=== PATIENT | male | born 1960 | race African-American/Black ===

== ENCOUNTER 2021-06-03 09:26 | Inpatient (IN) | payer OTHER ==
[~2021-06-03] VITALS: Ht 175.3 cm; Wt 78.5 kg
[~2021-06-03 09:26] MED LIST: ATEN-175; METF-416
[2021-06-03 09:45] LABS: BASOPHILS % 0.7 % (0.0-2.0); EOSINOPHILS % 1.7 % (0.0-5.0); HEMATOCRIT. 37.2 % (42.0-52.0); HEMOGLOBIN. 11.8 g/dL (14.0-18.0); LYMPHOCYTES % 14.5 % (20.0-50.0); MEAN CORPUSCULAR HEMOGLOBIN 27.6 pg (28.0-32.0); MEAN CORPUSCULAR VOLUME 86.5 fL (80.0-94.0); MEAN PLATELET VOLUME 9.8 fl (7.4-10.4); MONOCYTES % 6.2 % (2.0-8.0); NEUTROPHILS % 76.9 % (40.0-76.0); PLATELET 344 x1000/uL (130-400); RED CELL DISTRIBUTION WIDTH 15.6 % (11.6-14.6)
[2021-06-03] MEDS ORDERED: ENALAPRIL 1.25MG/ML VIAL 1ML IV ONE (09:45)
[2021-06-03] MEDS ORDERED: ENALAPRIL 2.5MG/2ML VIAL 2ML IV ONE (09:45)
[2021-06-03] MEDS ORDERED: FUROSEMIDE 40MG/4ML VIAL IVP ONE (09:45)
[2021-06-03 09:53] LABS: CHLORIDE 110 mEq/L (98-107)
[2021-06-03] MEDS ORDERED: LEVOFLOXACIN 750MG PREMIX 150 ML IV ONE (10:00)
[2021-06-03 11:23] LABS: BG BASE EXCESS -0.9 mmol/L (-2.0-2.0); BG CARBOXYHEMOGLOBIN 1.6 % (0.5-1.5); BG DEOXYHEMOGLOBIN 0.1 % (0.0-5.0); BG FRACTION INSPIRED OXYGEN 100; BG HCO3 ACT 23.2 mmol/L (22.0-26.0); BG METHEMOGLOBIN 0.1 % (0.0-1.5); BG OXYGEN SATURATION 99.9 % (92.0-98.5); BG OXYHEMOGLOBIN 98.2 % (94.0-97.0); BG PCO2 36.6 mmHg (35.0-45.0); BG PO2 340.4 mmHg (75.0-100.0); BG SAMPLE SITE RIGHT RADIAL; BG TOTAL HEMOGLOBIN 11.7 g/dL (12.0-18.0); BG VENT MODE MASK - BIPAP
[2021-06-03] MEDS ORDERED: ONDANSETRON HCL 4MG/2ML INJ IV PRN (12:45)
[2021-06-03] MEDS ORDERED: IPRATROPIUM/ALBUTEROL 0.5-3(2.5)MG/3ML NEB HHN PRN (12:45)
[2021-06-03] MEDS ORDERED: ACETAMINOPHEN 325MG TABLET PO PRN (12:45)
[2021-06-03] MEDS ORDERED: CLONIDINE 0.1MG TABLET PO PRN (12:45)
[2021-06-03] MEDS ORDERED: DIPHENHYDRAMINE 50MG/ML VIAL IV PRN (12:45)
[2021-06-03 14:00] VITALS: BP_SYST 133; BP_SYST 147; BP_DIAS 86; BP_DIAS 94
[2021-06-03] MEDS: ENOXAPARIN 40MG/0.4ML SYR SUBCUT SCH (14:42)
[2021-06-03] MEDS: AMLODIPINE 5MG TABLET PO SCH (14:42)
[2021-06-03 16:00] VITALS: BP 137/87
[2021-06-03] MEDS ORDERED: AMLO5TAB88 PO (16:45)
[2021-06-03] MEDS ORDERED: SULF-293 PO (16:47)
[2021-06-03] MEDS ORDERED: OMEP40CA20 MT (16:51)
[2021-06-03] MEDS ORDERED: ASPI-1079 PO (16:52)
[2021-06-03] MEDS ORDERED: *PATIENT'S OWN MEDICATION STORAGE XX SCH (17:15)
[2021-06-03 18:00] VITALS: BP 130/86
[2021-06-03] MEDS ORDERED: DEXTROSE 50% WATER 50ML SYRINGE IV PRN (18:45)
[2021-06-03 20:00] VITALS: BP 118/71
[2021-06-03] MEDS: IPRATROPIUM/ALBUTEROL 0.5-3(2.5)MG/3ML NEB HHN SCH (20:13)
[2021-06-03] MEDS: BLOOD SUGAR DIAGNOSTIC STRIP TEST SCH (20:48)
[2021-06-03] MEDS ORDERED: NALOXONE HCL 0.4MG/ML VIAL IV PRN (21:30)
[2021-06-03] MEDS: FUROSEMIDE 100MG/10ML VIAL IV SCH (21:38)
[2021-06-03] MEDS: INSULIN LISPRO 100 UNITS/ML SUBCUT SCH (21:42)
[2021-06-03] MEDS: HYDROCODONE/ACETAMINOPHEN 5/325MG TABLET PO PRN (21:43)
[2021-06-03] MEDS: ZOLPIDEM TARTRATE 5MG TABLET PO PRN (21:43)
[2021-06-03 22:00] VITALS: BP 127/72
[2021-06-04] VITALS (12 sets, daily range): BP systolic 124–146; BP diastolic 58–93
[2021-06-04] MEDS: IPRATROPIUM/ALBUTEROL 0.5-3(2.5)MG/3ML NEB HHN SCH ×4 (01:22→20:32)
[2021-06-04 06:00] LABS: CHLORIDE 106 mEq/L (98-107)
[2021-06-04 06:16] LABS: BASOPHILS % 0.5 % (0.0-2.0); EOSINOPHILS % 0.3 % (0.0-5.0); HEMATOCRIT. 36.2 % (42.0-52.0); HEMOGLOBIN. 11.7 g/dL (14.0-18.0); LYMPHOCYTES % 9.8 % (20.0-50.0); MEAN CORPUSCULAR VOLUME 86.8 fL (80.0-94.0); MEAN PLATELET VOLUME 10.3 fl (7.4-10.4); NEUTROPHILS % 84.4 % (40.0-76.0); PLATELET 271 x1000/uL (130-400); RED BLOOD CELL COUNT 4.17 mill/uL (4.7-6.1); RED CELL DISTRIBUTION WIDTH 15.5 % (11.6-14.6)
[2021-06-04] MEDS: BLOOD SUGAR DIAGNOSTIC STRIP TEST SCH ×4 (07:30→21:00)
[2021-06-04] MEDS: INSULIN LISPRO 100 UNITS/ML SUBCUT SCH ×4 (08:00→20:52)
[2021-06-04] MEDS ORDERED: FUROSEMIDE 40MG/4ML VIAL IV SCH (09:00)
[2021-06-04] MEDS: ENOXAPARIN 40MG/0.4ML SYR SUBCUT SCH (09:16)
[2021-06-04] MEDS: AMLODIPINE 5MG TABLET PO SCH (09:16)
[2021-06-04] MEDS: FUROSEMIDE 100MG/10ML VIAL IV SCH ×2 (09:25→20:52)
[2021-06-04] MEDS: HYDROCODONE/ACETAMINOPHEN 5/325MG TABLET PO PRN ×2 (09:35→20:53)
[2021-06-04] MEDS ORDERED: INFLUENZA VACCINE 05/PF 0.5 ML SYRINGE IM ONE (10:45)
[2021-06-04] MEDS ORDERED: PNEUMOCOCCAL 23-VAL P-SAC VAC 0.5 ML IM ONE (10:45)
[2021-06-04 13:19] LABS: *AMPHETAMINES SCREEN URINE NEGATIVE (NEGATIVE); *BARBITURATES SCREEN URINE NEGATIVE (NEGATIVE); *BENZODIAZEPINES SCREEN URINE NEGATIVE (NEGATIVE); *COCAINE SCREEN URINE PRESUMTIVE POSITIVE (NEGATIVE)
[2021-06-04 13:20] LABS: CANNABINOID URINE SCREEN PRESUMTIVE POSITIVE (NEGATIVE); METHADONE URINE SCREEN NEGATIVE (NEGATIVE); OPIATES URINE SCREEN PRESUMTIVE POSITIVE (NEGATIVE); PHENCYCLIDINE URINE SCREEN NEGATIVE (NEGATIVE)
[2021-06-04] MEDS: ZOLPIDEM TARTRATE 5MG TABLET PO PRN (20:52)
[2021-06-05] VITALS (7 sets, daily range): BP systolic 118–155; BP diastolic 40–106
[2021-06-05] MEDS: IPRATROPIUM/ALBUTEROL 0.5-3(2.5)MG/3ML NEB HHN SCH ×2 (02:02→08:17)
[2021-06-05] MEDS: INSULIN LISPRO 100 UNITS/ML SUBCUT SCH (08:00)
[2021-06-05] MEDS: HYDROCODONE/ACETAMINOPHEN 5/325MG TABLET PO PRN (08:02)
[2021-06-05] MEDS: BLOOD SUGAR DIAGNOSTIC STRIP TEST SCH (08:04)
[2021-06-05] MEDS: ENOXAPARIN 40MG/0.4ML SYR SUBCUT SCH (08:13)
[2021-06-05] MEDS: AMLODIPINE 5MG TABLET PO SCH (08:13)
[2021-06-05] MEDS ORDERED: FUROSEMIDE 40MG TABLET PO SCH (09:00)
[2021-06-05] MEDS ORDERED: FURO40TA5 PO (11:41)
[2021-06-05] MEDS ORDERED: METF-416 PO (11:41)
[2021-06-05] MEDS ORDERED: AMLO5TAB88 PO (11:41)
== END 2021-06-05 12:09 | disposition home or self-care (01) | DRG 194 ==
LOC: ER 09:26 → 5EST 10:52 → EDBEDREQTM 10:58 → EDBEDREQ 10:58 → ENRESERV 11:51 → 5EST 06-04 03:40
PROVIDERS: ADMIT Internal Medicine; ATTEND Internal Medicine
PROC: 5A09357 Assistance with Respiratory Ventilation, Less than 24 Consecutive Hours, Continuous Positive Airway Pressure (ICD-10-PCS; principal; 2021-06-03)
PROC: 5A09357 Assistance with Respiratory Ventilation, Less than 24 Consecutive Hours, Continuous Positive Airway Pressure (ICD-10-PCS; 2021-06-04)
DX: I11.0 Hypertensive heart disease with heart failure (principal); J96.01 Acute respiratory failure with hypoxia; E43 Unspecified severe protein-calorie malnutrition; I50.33 Acute on chronic diastolic (congestive) heart failure; I31.3 Pericardial effusion (noninflammatory); I42.9 Cardiomyopathy, unspecified; F17.210 Nicotine dependence, cigarettes, uncomplicated; J44.9 Chronic obstructive pulmonary disease, unspecified; R74.01 Elevation of levels of liver transaminase levels; E87.8 Other disorders of electrolyte and fluid balance, not elsewhere classified; E11.65 Type 2 diabetes mellitus with hyperglycemia; I34.0 Nonrheumatic mitral (valve) insufficiency; Z20.822 Contact with and (suspected) exposure to COVID-19; Z82.3 Family history of stroke; Z79.82 Long term (current) use of aspirin; Z79.899 Other long term (current) drug therapy; Z79.84 Long term (current) use of oral hypoglycemic drugs; Z68.25 Body mass index [BMI] 25.0-25.9, adult; Z91.14 Patient's other noncompliance with medication regimen; Z71.6 Tobacco abuse counseling
CPT/HCPCS: 36415; 36600; 71045; 80053; 80305; 82375; 82805; 82962; 83036; 83735; 83880; 84443; 84484; 85025; 87426; 87804; 93005; 93306; 93970; 94660; 99291; J1650; J1815; J1940; J1956; J3490

== ENCOUNTER 2021-12-29 16:13 | Inpatient (IN) | payer MEDICAID, OTHER ==
[~2021-12-29] VITALS: Ht 180.3 cm; Wt 113.1 kg
[~2021-12-29 16:13] MED LIST changes: +APIX5TAB PO; -ATEN-175; +COR3 PO; +DIGO-28 PO; +FURO40TA5 PO; +LISI2.5T47 PO; +LORA-249 MT; +MELA3TAB40 MT; -METF-416; +METF-416 PO; +OMEP40CA20 MT
[2021-12-29] MEDS ORDERED: FUROSEMIDE 100MG/10ML VIAL IVP ONE (16:45)
[2021-12-29] MEDS ORDERED: HYDRALAZINE 20MG/ML VIAL IV ONE (16:45)
[2021-12-29] MEDS ORDERED: NITROGLYCERIN OINT 1GM/INCH UDPKT TD ONE (16:45)
[2021-12-29 18:49] LABS: CHLORIDE 106 mEq/L (98-107)
[2021-12-29 18:50] LABS: INR 1.1; PROTHROMBIN TIME 12.2 sec (9.6-11.0)
[2021-12-29 18:54] LABS: BASOPHILS % 0.3 % (0.0-2.0); EOSINOPHILS % 0.7 % (0.0-5.0); HEMATOCRIT. 35.1 % (42.0-52.0); HEMOGLOBIN. 10.9 g/dL (14.0-18.0); LYMPHOCYTES % 14.9 % (20.0-50.0); MEAN CORPUSCULAR HEMOGLOBIN 23.1 pg (28.0-32.0); MEAN CORPUSCULAR VOLUME 74.3 fL (80.0-94.0); MEAN PLATELET VOLUME 11.3 fl (7.4-10.4); MONOCYTES % 7.5 % (2.0-8.0); NEUTROPHILS % 76.6 % (40.0-76.0); PLATELET 119 x1000/uL (130-400); RED BLOOD CELL COUNT 4.72 mill/uL (4.7-6.1); RED CELL DISTRIBUTION WIDTH 22.3 % (11.6-14.6)
[2021-12-29 20:26] LABS: PLATELET ESTIMATE DECREASED
[2021-12-29] MEDS ORDERED: METOPROLOL SUCCINATE 50MG ER TABLET PO NR (21:30)
[2021-12-29] MEDS ORDERED: METOPROLOL TARTRATE 5MG/5ML VIAL IV NR (21:30)
[2021-12-29] MEDS ORDERED: METOPROLOL TARTRATE 5MG/5ML VIAL IV ONE (22:30)
[2021-12-29] MEDS ORDERED: IOHEXOL-300 100 ML BOTTLE ONE (22:45)
[2021-12-29] MEDS ORDERED: INSULIN REGULAR (HUMULIN R) 300UNITS/3ML VIAL SUBCUT ONE (22:45)
[2021-12-29] MEDS ORDERED: POTASSIUM CHLORIDE 20MEQ TABLET SR PO NR (23:00)
[2021-12-30 01:00] VITALS: BP 133/95
[2021-12-30] MEDS ORDERED: LORAZEPAM 0.5MG TABLET PO PRN (03:15)
[2021-12-30 04:00] VITALS: BP 130/90
[2021-12-30 08:00] VITALS: BP 138/107
[2021-12-30] MEDS ORDERED: DEXTROSE 50% WATER 50ML SYRINGE IV PRN (08:00)
[2021-12-30] MEDS ORDERED: INSULIN LISPRO 100 UNITS/ML SUBCUT NR (08:00)
[2021-12-30] MEDS ORDERED: POTASSIUM CHLORIDE 20MEQ TABLET SR PO NR (08:15)
[2021-12-30] MEDS: CARVEDILOL 6.25 MG TABLET PO SCH ×2 (08:34→21:33)
[2021-12-30] MEDS: METFORMIN HCL 500MG TABLET PO SCH ×2 (08:34→17:04)
[2021-12-30] MEDS: OMEPRAZOLE 20MG CAPSULE EXTENDED RELEASE PO SCH (08:35)
[2021-12-30] MEDS: APIXABAN 5 MG TABLET PO SCH ×2 (08:35→17:04)
[2021-12-30] MEDS: LISINOPRIL 2.5MG TABLET PO SCH (08:35)
[2021-12-30] MEDS ORDERED: FUROSEMIDE 40MG TABLET PO SCH (09:00)
[2021-12-30] MEDS ORDERED: CARVEDILOL 3.125 MG TABLET PO SCH (09:00)
[2021-12-30] MEDS ORDERED: METOLAZONE 2.5MG TABLET PO NR (09:30)
[2021-12-30] MEDS: INSULIN GLARGINE 100 UNITS/ML SUBCUT SCH ×2 (09:41→21:28)
[2021-12-30] MEDS ORDERED: INSULIN GLARGINE 100 UNITS/ML SUBCUT SCH (10:00)
[2021-12-30 12:00] VITALS: BP 130/76
[2021-12-30] MEDS: BLOOD SUGAR DIAGNOSTIC STRIP TEST SCH ×3 (12:31→21:27)
[2021-12-30] MEDS: INSULIN LISPRO 100 UNITS/ML SUBCUT SCH ×3 (12:42→21:00)
[2021-12-30 16:19] VITALS: BP 118/78
[2021-12-30] MEDS: DIGOXIN 250MCG TABLET PO SCH (17:04)
[2021-12-30] MEDS: FUROSEMIDE 100MG/10ML VIAL IVP SCH (17:04)
[2021-12-30 20:00] VITALS: BP 120/93
[2021-12-31] VITALS: BP 101/67
[2021-12-31 04:00] VITALS: BP 133/80
[2021-12-31] MEDS: METFORMIN HCL 500MG TABLET PO SCH ×2 (06:46→17:41)
[2021-12-31] MEDS: FUROSEMIDE 100MG/10ML VIAL IVP SCH ×2 (06:46→17:41)
[2021-12-31] MEDS: BLOOD SUGAR DIAGNOSTIC STRIP TEST SCH ×4 (06:47→21:35)
[2021-12-31] MEDS: INSULIN LISPRO 100 UNITS/ML SUBCUT SCH ×4 (07:40→20:39)
[2021-12-31 08:00] VITALS: BP 135/79
[2021-12-31] MEDS: OMEPRAZOLE 20MG CAPSULE EXTENDED RELEASE PO SCH (08:40)
[2021-12-31] MEDS: APIXABAN 5 MG TABLET PO SCH ×2 (08:41→17:41)
[2021-12-31] MEDS: CARVEDILOL 6.25 MG TABLET PO SCH ×2 (08:41→20:40)
[2021-12-31] MEDS: LISINOPRIL 2.5MG TABLET PO SCH (08:41)
[2021-12-31] MEDS: INSULIN GLARGINE 100 UNITS/ML SUBCUT SCH ×2 (10:00→21:38)
[2021-12-31 12:00] VITALS: BP 155/84
[2021-12-31 16:00] VITALS: BP 124/60
[2021-12-31] MEDS ORDERED: METOLAZONE 2.5MG TABLET PO NR (17:00)
[2021-12-31] MEDS: DIGOXIN 250MCG TABLET PO SCH (17:41)
[2021-12-31 17:57] LABS: CHLORIDE 105 mEq/L (98-107)
[2021-12-31 20:00] VITALS: BP 113/70
[2021-12-31] MEDS ORDERED: NALOXONE HCL 0.4MG/ML VIAL IV PRN (20:45)
[2021-12-31] MEDS ORDERED: HYDROCODONE/ACETAMINOPHEN 5/325MG TABLET PO PRN (20:45)
[2022-01-01] VITALS: BP 104/53
[2022-01-01 04:00] VITALS: BP 101/61
[2022-01-01] MEDS: INSULIN LISPRO 100 UNITS/ML SUBCUT SCH ×4 (06:19→21:00)
[2022-01-01] MEDS: BLOOD SUGAR DIAGNOSTIC STRIP TEST SCH ×4 (06:19→21:35)
[2022-01-01] MEDS: FUROSEMIDE 100MG/10ML VIAL IVP SCH ×2 (07:15→17:11)
[2022-01-01 08:00] VITALS: BP 101/50
[2022-01-01] MEDS ORDERED: POTASSIUM CHLORIDE 20MEQ TABLET SR PO NR ×2 (08:30→20:30)
[2022-01-01] MEDS: LISINOPRIL 2.5MG TABLET PO SCH (09:00)
[2022-01-01] MEDS: CARVEDILOL 6.25 MG TABLET PO SCH ×2 (09:00→21:00)
[2022-01-01] MEDS: INSULIN GLARGINE 100 UNITS/ML SUBCUT SCH ×2 (09:34→22:00)
[2022-01-01] MEDS ORDERED: LIDOCAINE HCL/PF 1% 10 MG/ML 5ML VIAL ONE (10:30)
[2022-01-01 12:00] VITALS: BP 108/77
[2022-01-01] MEDS: OMEPRAZOLE 20MG CAPSULE EXTENDED RELEASE PO SCH (12:02)
[2022-01-01] MEDS: METFORMIN HCL 500MG TABLET PO SCH ×2 (12:02→17:11)
[2022-01-01] MEDS: APIXABAN 5 MG TABLET PO SCH ×2 (12:06→17:10)
[2022-01-01] MEDS ORDERED: METOLAZONE 2.5MG TABLET PO NR (12:15)
[2022-01-01 16:00] VITALS: BP 113/76
[2022-01-01] MEDS: DIGOXIN 250MCG TABLET PO SCH (17:10)
[2022-01-01 20:00] VITALS: BP 111/75
[2022-01-01] MEDS ORDERED: POTASSIUM CHLORIDE INJ 40 MEQ in DEXT 5% WATER 250 ML IV ONE (20:30)
[2022-01-01] MEDS ORDERED: KCL 20MEQ/100ML X 2 FOR TOTAL KCL 40MEQ/200ML IV SCH (22:00)
[2022-01-01] MEDS ORDERED: BENZONATATE 100MG CAPSULE PO PRN (23:30)
[2022-01-02] VITALS: BP 117/84
[2022-01-02 04:00] VITALS: BP 123/82
[2022-01-02] MEDS: INSULIN LISPRO 100 UNITS/ML SUBCUT SCH ×4 (06:03→21:28)
[2022-01-02] MEDS: FUROSEMIDE 100MG/10ML VIAL IVP SCH ×2 (06:04→17:38)
[2022-01-02] MEDS: BLOOD SUGAR DIAGNOSTIC STRIP TEST SCH ×4 (06:05→21:15)
[2022-01-02 07:56] LABS: CHLORIDE 99 mEq/L (98-107)
[2022-01-02 08:00] VITALS: BP 128/77
[2022-01-02] MEDS: OMEPRAZOLE 20MG CAPSULE EXTENDED RELEASE PO SCH (08:30)
[2022-01-02] MEDS: LISINOPRIL 2.5MG TABLET PO SCH (08:30)
[2022-01-02] MEDS: APIXABAN 5 MG TABLET PO SCH ×2 (08:30→17:38)
[2022-01-02] MEDS: CARVEDILOL 6.25 MG TABLET PO SCH ×2 (08:30→21:20)
[2022-01-02] MEDS: METFORMIN HCL 500MG TABLET PO SCH ×2 (08:30→17:38)
[2022-01-02] MEDS: POTASSIUM CHLORIDE 20MEQ TABLET SR PO SCH ×3 (08:50→09:17)
[2022-01-02] MEDS: INSULIN GLARGINE 100 UNITS/ML SUBCUT SCH (09:10)
[2022-01-02 12:00] VITALS: BP 113/71
[2022-01-02] MEDS ORDERED: POTASSIUM CHLORIDE INJ 40 MEQ in DEXT 5% WATER 250 ML IV ONE (15:15)
[2022-01-02 16:00] VITALS: BP 128/77
[2022-01-02] MEDS: KCL 20MEQ/100ML X 2 FOR TOTAL KCL 40MEQ/200ML IV SCH ×2 (17:38→21:26)
[2022-01-02] MEDS: DIGOXIN 250MCG TABLET PO SCH (17:38)
[2022-01-02 20:00] VITALS: BP 124/72
== END 2022-01-02 22:45 | disposition left against medical advice (07) | DRG 194 ==
LOC: ER 16:13 → 8WST 20:14 → EDBEDREQ 20:36 → EDBEDREQTM 20:36 → ENRESERV 21:48
PROVIDERS: ADMIT Internal Medicine; ATTEND Internal Medicine
PROC: 02HV33Z Insertion of Infusion Device into Superior Vena Cava, Percutaneous Approach (ICD-10-PCS; principal; 2022-01-01)
PROC: B5181ZA Fluoroscopy of Superior Vena Cava using Low Osmolar Contrast, Guidance (ICD-10-PCS; 2022-01-01)
PROC: B548ZZA Ultrasonography of Superior Vena Cava, Guidance (ICD-10-PCS; 2022-01-01)
DX: I11.0 Hypertensive heart disease with heart failure (principal); E43 Unspecified severe protein-calorie malnutrition; I27.20 Pulmonary hypertension, unspecified; R18.8 Other ascites; E66.01 Morbid (severe) obesity due to excess calories; D64.9 Anemia, unspecified; E11.65 Type 2 diabetes mellitus with hyperglycemia; E87.6 Hypokalemia; I50.23 Acute on chronic systolic (congestive) heart failure; J44.9 Chronic obstructive pulmonary disease, unspecified; F14.90 Cocaine use, unspecified, uncomplicated; Z68.34 Body mass index [BMI] 34.0-34.9, adult; Z53.29 Procedure and treatment not carried out because of patient's decision for other reasons; N50.89 Other specified disorders of the male genital organs
CPT/HCPCS: 36415; 36573; 71045; 74177; 80048; 80053; 82962; 83036; 83605; 83880; 84145; 85025; 93005; 97162; 99291; C1725; J1815; J1940; J3480; J3490; Q9967

== ENCOUNTER 2022-01-18 15:16 | Inpatient (IN) | payer OTHER ==
[~2022-01-18] VITALS: Ht 170.2 cm; Wt 117.5 kg
[2022-01-18] MEDS ORDERED: ASPIRIN 81MG TABLET PO ONE (15:45)
[2022-01-18] MEDS ORDERED: FUROSEMIDE 40MG/4ML VIAL IV ONE (15:45)
[2022-01-18] MEDS ORDERED: CARVEDILOL 3.125 MG TABLET PO ONE (15:45)
[2022-01-18 18:57] LABS: BASOPHILS % 0.8 % (0.0-2.0); EOSINOPHILS % 0.7 % (0.0-5.0); HEMATOCRIT. 33.1 % (42.0-52.0); HEMOGLOBIN. 10.1 g/dL (14.0-18.0); LYMPHOCYTES % 20.7 % (20.0-50.0); MEAN CORPUSCULAR HEMOGLOBIN 23.2 pg (28.0-32.0); MEAN CORPUSCULAR VOLUME 76.1 fL (80.0-94.0); MEAN PLATELET VOLUME 10.2 fl (7.4-10.4); MONOCYTES % 9.3 % (2.0-8.0); NEUTROPHILS % 68.5 % (40.0-76.0); PLATELET 198 x1000/uL (130-400); RED BLOOD CELL COUNT 4.35 mill/uL (4.7-6.1); RED CELL DISTRIBUTION WIDTH 20.6 % (11.6-14.6)
[2022-01-18 19:03] LABS: CHLORIDE 99 mEq/L (98-107)
[2022-01-18] MEDS ORDERED: ASPIRIN 81MG TABLET PO NR (19:30)
[2022-01-18] MEDS ORDERED: CARVEDILOL 3.125 MG TABLET PO NR (19:30)
[2022-01-18] MEDS ORDERED: FUROSEMIDE 40MG/4ML VIAL IV NR (19:30)
[2022-01-19] MEDS ORDERED: CARVEDILOL 3.125 MG TABLET PO NR (00:15)
[2022-01-19 05:00] VITALS: BP 153/104
[2022-01-19] MEDS ORDERED: LORAZEPAM 0.5MG TABLET PO PRN (06:30)
[2022-01-19] MEDS ORDERED: DEXTROSE 50% WATER 50ML SYRINGE IV PRN (06:45)
[2022-01-19] MEDS ORDERED: ONDANSETRON HCL 4MG/2ML INJ IV PRN (06:45)
[2022-01-19] MEDS ORDERED: ACETAMINOPHEN 325MG TABLET PO PRN (06:45)
[2022-01-19] MEDS: BLOOD SUGAR DIAGNOSTIC STRIP TEST SCH ×4 (07:23→21:41)
[2022-01-19 08:00] VITALS: BP 141/99
[2022-01-19] MEDS: OMEPRAZOLE 20MG CAPSULE EXTENDED RELEASE PO SCH (08:21)
[2022-01-19] MEDS: METFORMIN HCL 500MG TABLET PO SCH ×2 (08:21→18:05)
[2022-01-19] MEDS: CARVEDILOL 3.125 MG TABLET PO SCH ×2 (08:22→21:47)
[2022-01-19] MEDS: APIXABAN 5 MG TABLET PO SCH ×2 (08:22→18:05)
[2022-01-19] MEDS: LISINOPRIL 20MG TABLET PO SCH (08:23)
[2022-01-19] MEDS: INSULIN LISPRO 100 UNITS/ML SUBCUT SCH ×4 (08:23→21:52)
[2022-01-19 08:44] LABS: BASOPHILS % 0.7 % (0.0-2.0); HEMATOCRIT. 34.1 % (42.0-52.0); HEMOGLOBIN. 10.6 g/dL (14.0-18.0); LYMPHOCYTES % 18.6 % (20.0-50.0); MEAN CORPUSCULAR HEMOGLOBIN 22.9 pg (28.0-32.0); MEAN CORPUSCULAR VOLUME 74.2 fL (80.0-94.0); MEAN PLATELET VOLUME 9.8 fl (7.4-10.4); MONOCYTES % 9.1 % (2.0-8.0); NEUTROPHILS % 70.6 % (40.0-76.0); PLATELET 199 x1000/uL (130-400)
[2022-01-19 09:02] LABS: CHLORIDE 98 mEq/L (98-107)
[2022-01-19 09:09] LABS: HDL CHOLESTEROL 27 mg/dL (40-59); LDL CHOLESTEROL 98 mg/dL (5-100)
[2022-01-19] MEDS ORDERED: METOLAZONE 2.5MG TABLET PO NR (09:30)
[2022-01-19 12:00] VITALS: BP 106/76
[2022-01-19 16:00] VITALS: BP 135/82
[2022-01-19] MEDS ORDERED: FUROSEMIDE 40MG/4ML VIAL IVP SCH (18:00)
[2022-01-19] MEDS: FUROSEMIDE 100MG/10ML VIAL IVP SCH (18:05)
[2022-01-19] MEDS: DIGOXIN 250MCG TABLET PO SCH (18:05)
[2022-01-19 18:30] LABS: *AMPHETAMINES SCREEN URINE NEGATIVE (NEGATIVE); *BARBITURATES SCREEN URINE NEGATIVE (NEGATIVE); *BENZODIAZEPINES SCREEN URINE NEGATIVE (NEGATIVE); *COCAINE SCREEN URINE PRESUMTIVE POSITIVE (NEGATIVE); CANNABINOID URINE SCREEN NEGATIVE (NEGATIVE); METHADONE URINE SCREEN NEGATIVE (NEGATIVE); OPIATES URINE SCREEN NEGATIVE (NEGATIVE); PHENCYCLIDINE URINE SCREEN NEGATIVE (NEGATIVE)
[2022-01-19 20:00] VITALS: BP 132/85
[2022-01-19] MEDS ORDERED: MELATONIN 3MG TABLET PO PRN (21:00)
[2022-01-19] MEDS: INSULIN GLARGINE 100 UNITS/ML SUBCUT SCH (21:53)
[2022-01-20] VITALS: BP 135/69
[2022-01-20 04:00] VITALS: BP 123/75
[2022-01-20] MEDS: FUROSEMIDE 100MG/10ML VIAL IVP SCH ×2 (05:34→18:01)
[2022-01-20] MEDS: BLOOD SUGAR DIAGNOSTIC STRIP TEST SCH ×4 (05:35→20:22)
[2022-01-20] MEDS: INSULIN LISPRO 100 UNITS/ML SUBCUT SCH ×4 (05:35→20:22)
[2022-01-20 07:52] VITALS: BP 132/75
[2022-01-20 08:13] LABS: CHLORIDE 99 mEq/L (98-107)
[2022-01-20] MEDS: APIXABAN 5 MG TABLET PO SCH ×2 (08:44→18:01)
[2022-01-20] MEDS: CARVEDILOL 3.125 MG TABLET PO SCH ×2 (08:44→21:00)
[2022-01-20] MEDS: LISINOPRIL 20MG TABLET PO SCH (08:44)
[2022-01-20] MEDS: METFORMIN HCL 500MG TABLET PO SCH ×2 (08:44→18:01)
[2022-01-20] MEDS: OMEPRAZOLE 20MG CAPSULE EXTENDED RELEASE PO SCH (08:44)
[2022-01-20] MEDS: INSULIN GLARGINE 100 UNITS/ML SUBCUT SCH ×2 (08:47→20:22)
[2022-01-20] MEDS ORDERED: HYDROCODONE/ACETAMINOPHEN 5/325MG TABLET PO PRN (10:15)
[2022-01-20] MEDS ORDERED: METOLAZONE 2.5MG TABLET PO ONE (11:30)
[2022-01-20 11:37] VITALS: BP 108/68
[2022-01-20] MEDS ORDERED: TRAMADOL 50MG TABLET PO PRN (12:15)
[2022-01-20] MEDS ORDERED: NALOXONE HCL 0.4MG/ML VIAL IV PRN (12:15)
[2022-01-20 16:00] VITALS: BP 124/69
[2022-01-20] MEDS: DIGOXIN 250MCG TABLET PO SCH (18:03)
[2022-01-20 20:00] VITALS: BP 109/79
[2022-01-21] VITALS: BP 116/77
[2022-01-21 04:00] VITALS: BP 122/76
[2022-01-21] MEDS: BLOOD SUGAR DIAGNOSTIC STRIP TEST SCH ×3 (05:06→17:10)
[2022-01-21] MEDS: INSULIN LISPRO 100 UNITS/ML SUBCUT SCH ×3 (05:06→17:40)
[2022-01-21] MEDS: FUROSEMIDE 100MG/10ML VIAL IVP SCH (05:09)
[2022-01-21 07:10] LABS: CHLORIDE 98 mEq/L (98-107)
[2022-01-21 08:00] VITALS: BP 117/68
[2022-01-21] MEDS: APIXABAN 5 MG TABLET PO SCH ×2 (09:56→17:51)
[2022-01-21] MEDS: METFORMIN HCL 500MG TABLET PO SCH ×2 (09:56→17:51)
[2022-01-21] MEDS: CARVEDILOL 3.125 MG TABLET PO SCH (09:56)
[2022-01-21] MEDS: INSULIN GLARGINE 100 UNITS/ML SUBCUT SCH (10:00)
[2022-01-21] MEDS: LISINOPRIL 20MG TABLET PO SCH (10:00)
[2022-01-21 12:00] VITALS: BP 138/74
[2022-01-21] MEDS: FAMOTIDINE 20MG TABLET PO SCH ×2 (15:39→17:00)
[2022-01-21 16:00] VITALS: BP 129/73
[2022-01-21] MEDS ORDERED: METF-874 MT (17:14)
[2022-01-21] MEDS ORDERED: LISI20TA31 PO (17:14)
[2022-01-21] MEDS ORDERED: GLIP5TAB12 MT (17:14)
[2022-01-21] MEDS ORDERED: APIX5TAB PO (17:14)
[2022-01-21] MEDS ORDERED: FURO80TA87 MT (17:17)
[2022-01-21] MEDS ORDERED: CARV6.2548 MT (17:17)
[2022-01-21] MEDS: DIGOXIN 250MCG TABLET PO SCH (17:51)
[2022-01-21 18:33] VITALS: BP 129/73
== END 2022-01-21 22:00 | disposition home health service (06) | DRG 194 ==
LOC: ER 15:16 → MICUSO 21:28 → 8WST 01-19 04:36
PROVIDERS: ADMIT Internal Medicine; ATTEND Internal Medicine
DX: I11.0 Hypertensive heart disease with heart failure (principal); E43 Unspecified severe protein-calorie malnutrition; I27.20 Pulmonary hypertension, unspecified; I31.3 Pericardial effusion (noninflammatory); E87.1 Hypo-osmolality and hyponatremia; E66.9 Obesity, unspecified; D64.9 Anemia, unspecified; E11.65 Type 2 diabetes mellitus with hyperglycemia; I48.91 Unspecified atrial fibrillation; F14.90 Cocaine use, unspecified, uncomplicated; I50.23 Acute on chronic systolic (congestive) heart failure; J44.9 Chronic obstructive pulmonary disease, unspecified; I34.0 Nonrheumatic mitral (valve) insufficiency; F32.A Depression, unspecified; Z79.84 Long term (current) use of oral hypoglycemic drugs; Z79.899 Other long term (current) drug therapy; Z91.19 Patient's noncompliance with other medical treatment and regimen; Z68.41 Body mass index [BMI] 40.0-44.9, adult; Z71.51 Drug abuse counseling and surveillance of drug abuser; Z71.3 Dietary counseling and surveillance
CPT/HCPCS: 36415; 71045; 80048; 80053; 80061; 80305; 82962; 83036; 83880; 84484; 85025; 93005; 93306; 97116; 97162; 99291; J1815; J1940